=== PATIENT | female | born 2000 | race African-American/Black ===

== ENCOUNTER 2023-01-30 08:41 | Emergency (ER) | payer OTHER ==
[2023-01-30 08:51] VITALS: BP 129/74; PULSE 74; RESP 18; TEMP 98; BMI 39.3
[2023-01-30] MEDS ORDERED: ACETAMINOPHEN 500 MG TABLET (FP) PO ONE (09:38)
[2023-01-30] MEDS ORDERED: ACETAMINOPHEN 500 MG TABLET (FP) ONE (09:49)
== END 2023-01-30 11:22 | disposition home or self-care (01) ==
LOC: JERFT 08:41
DX: M25.572 Pain in left ankle and joints of left foot (principal); S93.492A Sprain of other ligament of left ankle, initial encounter; X50.9XXA Other and unspecified overexertion or strenuous movements or postures, initial encounter
CPT/HCPCS: 73610-TC-LT-FY; 73630-TC-LT; 99283-25